=== PATIENT | female | born 1960 | race American Indian/Alaskan Native ===

== ENCOUNTER 2016-09-10 12:49 | Outpatient (CLI) | payer BC ==
--- NOTE | 2016-09-10 14:26 | Mammography Report ---
Screening mammogram: Routine views compared to prior exam in August 2015. The overall breast pattern generally fatty replaced. An ovoid well-circumscribed density is present in the inferior left breast which has slightly enlarged compared to prior study. Small stable similar nodule is noted in the lateral right breast. No other significant findings or changes identified. CAD used. Impression: Slightly enlarging left breast asymmetry. Recommendation: Left breast ultrasound. If this is not a simple cyst, additional spot compression imaging of the left breast is recommended. BI-RADS CATEGORY: 0 = Needs additional imaging evaluation ACR BI-RADS MAMMOGRAPHIC CODES: 0 = Needs additional imaging evaluation; 1 = Negative; 2 = Benign; 3 = Probably benign; 4 = Suspicious; 5 = Malignant; 6 = Known biopsy-proven malignancy COMMENT: 1. Dense breast tissue, i.e., adenosis, fibrocystic changes, etc., may obscure an underlying neoplasm. 2. Approximately 10% of cancers are not detected with mammography. 3. A negative mammography report should not delay biopsy if a clinically suspicious mass is present.
== END 2016-09-10 12:50 | disposition home or self-care (01) ==
LOC: SPVWC 12:49
PROVIDERS: ATTEND Family Medicine
DX: Z12.31 Encounter for screening mammogram for malignant neoplasm of breast (principal)
CPT/HCPCS: 77067; G0202

== ENCOUNTER 2016-09-17 15:11 | Outpatient (CLI) | payer BC ==
--- NOTE | 2016-09-17 15:48 | Ultrasound Report ---
LEFT BREAST ULTRASOUND: 09/17/16 15:11:00 CLINICAL: Abnormal screening mammogram. COMPARISON: 09/10/16 FINDINGS: Ultrasound of the left breast(including all four quadrants and the retroareolar area) was performed and demonstrated normal fatty structures with no mass, cyst or shadowing to correlate with the mammographic density. IMPRESSION: Negative left breast ultrasound and a probably benign 1 cm intraparenchymal lymph node in the inferior left breast. BI-RADS 3 - - Probably Benign RECOMMENDATION: Six month followup left mammogram.
== END 2016-09-17 15:12 | disposition home or self-care (01) ==
LOC: SPVWC 15:11
PROVIDERS: ATTEND Family Medicine
DX: R92.8 Other abnormal and inconclusive findings on diagnostic imaging of breast (principal)

== ENCOUNTER 2017-12-06 13:31 | Outpatient (CLI) | payer BC ==
--- NOTE | 2017-12-06 14:09 | Mammography Report ---
BILATERAL MAMMOGRAM: FINDINGS: The breasts are almost entirely fat (<25% glandular). No mass, distortion, suspicious calcification, or skin change is seen. No significant change compared to exams dating back to August 2015. CAD was utilized. IMPRESSION: Negative mammogram. There is no mammographic evidence of malignancy. RECOMMENDATION: Follow-up per ACS guidelines. BI-RADS CATEGORY: 1 = Negative ACR BI-RADS MAMMOGRAPHIC CODES: 0 = Needs additional imaging evaluation; 1 = Negative; 2 = Benign; 3 = Probably benign; 4 = Suspicious; 5 = Malignant; 6 = Known biopsy-proven malignancy COMMENT: 1. Dense breast tissue, i.e., adenosis, fibrocystic changes, etc., may obscure an underlying neoplasm. 2. Approximately 10% of cancers are not detected with mammography. 3. A negative mammography report should not delay biopsy if a clinically suspicious mass is present. COMMENT: Patient follow-up letters are generated in [employer].
== END 2017-12-06 13:32 | disposition home or self-care (01) ==
LOC: SPVWC 13:31
PROVIDERS: ATTEND Family Medicine
DX: Z12.31 Encounter for screening mammogram for malignant neoplasm of breast (principal)
CPT/HCPCS: 77067

== ENCOUNTER 2019-12-12 09:39 | Outpatient (CLI) | payer BC ==
--- NOTE | 2019-12-13 17:00 | Mammography Report ---
BILATERAL DIGITAL SCREENING MAMMOGRAM WITH CAD HISTORY: SCREENING MAMMO TECHNIQUE: Routine digital mammographic imaging performed. This examination was interpreted with koffi aggarwal benefit of Computer-aided Detection analysis. COMPARISON: 12/07/2018, 12/06/2017, 09/10/2016, 09/09/2015, 04/18/2013. FINDINGS: Breast Density: predominantly fatty breast parenchymal pattern. Digital CC and MLO views demonstrate no mammographic evidence of malignancy. Stable inferior breast lesion. Long-term stability would support a benign etiology, such as an intramammary lymph node. IMPRESSION: No mammographic evidence of malignancy. If the clinical examination remains stable, recommend bilate ral mammogram in approximately one year. BIRADS 2: Benign Finding(s). FURTHER INFORMATION: According to the [employer], yearly mammograms are recommend ed starting at age 40 and continuing as long as a woman is in good health. Clinical Breast Exams shou ld be part of a periodic health exam-about every 3 years for women in their 20s and 30s and every yea r for women 40 and over. Breast self exam is an option for women starting in their 20s. Any breast ch javon noted on a breast self exam should be reported promptly to the patient's healthcare provider. Br east MRI is recommended for women with an approximately 20-25% or greater lifetime risk of breast can cer, including women with a strong family history of breast or ovarian cancer and women who have been treated for Hodgkin's disease. A negative Mammography report should not discourage follow up or biopsy of a clinically significant f inding and/or abnormality. Dense breast tissue may obscure small neoplasms. The patient will be entered into a reminder system with a target due date for the next screening mamm ogram. Signer Name: Meir Del Castillo MD Signed: 12/13/2019 4:52 PM Workstation Name: [id number]
== END 2019-12-12 09:40 | disposition home or self-care (01) ==
LOC: SPVWC 09:39
PROVIDERS: ATTEND Family Medicine
DX: Z12.31 Encounter for screening mammogram for malignant neoplasm of breast (principal)
CPT/HCPCS: 77067

== ENCOUNTER 2020-03-13 09:27 | Emergency (ER) | payer BC ==
[2020-03-13 10:05] VITALS: BP 190/106
[2020-03-13 10:46] LABS: Basophils % (Auto) 0.5 % (0.0-1.8); Eosinophils # (Auto) 0.2 K/mm3 (0.0-0.4); Eosinophils % (Auto) 4.2 % (0.0-4.3); Hematocrit 43.9 % (30.3-42.9); Hemoglobin 14.2 gm/dl (10.1-14.3); Lymphocytes # (Auto) 2.8 K/mm3 (1.2-5.4); Lymphocytes % (Auto) 48.1 % (13.4-35.0); Mean Corpuscular HGB Conc 33 % (30-34); Mean Corpuscular Volume 87 fl (79-97); Monocytes # (Auto) 0.5 K/mm3 (0.0-0.8); Monocytes % (Auto) 7.8 % (0.0-7.3); Platelet Count 189 K/mm3 (140-440); Red Blood Count 5.05 M/mm3 (3.65-5.03); Red Cell Distribution Width 14.2 % (13.2-15.2)
[2020-03-13 11:08] LABS: Alanine Aminotransferase 27 units/L (7-56); BUN/Creatinine Ratio 15; Blood Urea Nitrogen 12 mg/dL (7-17); Calcium 9.8 mg/dL (8.4-10.2); Hemolysis Index 10
[2020-03-13 11:20] LABS: Bilirubin,Urine NEG (Negative); Blood,Urine NEG (Negative); Color,Urine Yellow (Yellow); Mucus,Urine 2+ /HPF; Protein,Urine <15 mg/dL mg/dL (Negative); Urobilinogen,Urine < 2.0 mg/dL (<2.0)
[2020-03-13] MEDS ORDERED: MORPHINE 4 MG/1 ML INJ IV ONE (16:03)
[2020-03-13] MEDS ORDERED: ONDANSETRON 4 MG/2 ML INJ IV ONE (16:03)
--- NOTE | 2020-03-13 16:40 | Cat Scan Report ---
CT ABDOMEN AND PELVIS WITH CONTRAST INDICATION / CLINICAL INFORMATION: acute left sided abdominal pain. TECHNIQUE: Axial CT images were obtained through the abdomen and pelvis after 100 cc Omnipaque [address] scans at this location are performed using CT dose reduction for ALARA by means of automated exposure control. COMPARISON: None available. FINDINGS: LOWER CHEST: No significant abnormality. LIVER: Generalized steatosis without other significant abnormalities. GALLBLADDER: No significant abnormality. BILE DUCTS: No significant abnormality. PANCREAS: No significant abnormality. SPLEEN: No significant abnormality. ADRENALS: No significant abnormality. RIGHT KIDNEY / URETER: No significant abnormality. LEFT KIDNEY / URETER: A simple left upper renal pole cyst measures 8.7 x 8.0 cm. No other significant abnormality. STOMACH / SMALL BOWEL: No significant abnormality. COLON: No significant abnormality. APPENDIX: Not seen. PERITONEUM: No free fluid. No free air. No fluid collection. LYMPH NODES: No significant adenopathy. AORTA / ARTERIES: No acute abnormality. Mild aortoiliac atherosclerosis. IVC / VEINS: No significant abnormality. URINARY BLADDER: No significant abnormality. REPRODUCTIVE ORGANS: No significant abnormality. ADDITIONAL FINDINGS: None. SKELETAL SYSTEM: No acute abnormality. Mild degenerative changes are seen along the spine. IMPRESSION: 1. No acute abnormality. 2. Additional findings as above. Signer Name: Levi Vigil MD Signed: 03/13/2020 4:35 PM Workstation Name: [id number]
--- NOTE | 2020-03-13 17:06 | Emergency Department Report ---
ED Abdominal Pain HPI - General Chief Complaint: Abdominal Pain Stated Complaint: LEFT ABD PAIN Time Seen by Provider: 03/13/20 13:58 Source: patient Mode of arrival: Wheelchair Limitations: No Limitations - History of Present Illness Initial Comments: The patient was evaluated in the emergency department for symptoms described in the history of present illness. He/she was evaluated in the context of the global COVID-19 pandemic, which necessitated consideration that the patient might be at risk for infection with the virus that causes COVID-19. In stitutional protocols and algorithms that pertain to the evaluation of patients at risk for COVID-19 are in a state of rapid change based on information released by regulatory bodies including the CDC and federal and state organizations. These policies and algorithms were followed during the patient's care in the emergency department. Please note that these policies, procedures and recommendations changed on a rapid basis. 59-year-old -[place] female presents to the emergency room for left upper quadrant abdominal pain times this morning. Patient states she has never had this type of pain. She denies any nausea no vomiting no diarrhea. She reports she has had a normal bowel movement this morning. She denies any fever or chills. She says the pain is worse when she takes a deep breath. She has no concerns of urinary symptoms. No vaginal discharge no vaginal bleeding. She does have a history of hypertension and high cholesterol she is currently on medication for this and does have a primary care provider Dr. Konstantin Andrade. Complaint: abdominal pain -: This morning Location: [facility] Radiation: none Migration to: no migration Severity scale (0 -10): 7 Quality: sharp Consistency: intermittent Improves With: medication Worsens With: other (deep breath) Associated Symptoms: denies other symptoms - Related Data Allergies Allergy/AdvReac Type Severity Reaction Status Date / Time No Known Allergies Allergy Unverified 03/13/20 10:03 ED Review of Systems ROS: Stated complaint: LEFT ABD PAIN Other details as noted in HPI Comment: All other systems reviewed and negative ED Past Medical Hx - Past Medical History Hx Hypertension: Yes Additional medical history: HIGH CHLORESTROL - Surgical History Past Surgical History?: No ED Physical Exam - General Limitations: No Limitations General appearance: alert, in no apparent distress - Head Head exam: Present: atraumatic, normocephalic - Eye Eye exam: Present: normal appearance - ENT ENT exam: Present: mucous membranes moist - Respiratory Respiratory exam: Absent: accessory muscle use - Cardiovascular Cardiovascular Exam: Present: regular rate, normal rhythm. Absent: systolic murmur, diastolic murmur, rubs, gallop - GI/Abdominal GI/Abdominal exam: Present: soft, tenderness (Left upper quadrant deep palpation), normal bowel sounds. Absent: distended - Extremities Exam Extremities exam: Present: normal inspection - Back Exam Back exam: Present: normal inspection - Neurological Exam Neurological exam: Present: alert, oriented X3 - Psychiatric Psychiatric exam: Present: normal affect, normal mood - Skin Skin exam: Present: warm, dry, intact, normal color. Absent: rash ED Course Vital Signs 03/13/20 10:02 Temperature 98.0 F Pulse Rate 81 Respiratory 20 Rate Blood Pressure 190/106 O2 Sat by Pulse 96 Oximetry ED Medical Decision Making - Lab Data Result diagrams: 03/13/20 10:26 03/13/20 10:26 - Medical Decision Making 59-year-old -[place] female presents to the emergency room for left upper quadrant abdominal pain times this morning. Patient states she has never had this type of pain. She denies any nausea no vomiting no diarrhea. She reports she has had a normal bowel movement this morning. She denies any fever or chills. She says the pain is worse when she takes a deep breath. She has no concerns of urinary symptoms. No vaginal discharge no vaginal bleeding. She does have a history of hypertension and high cholesterol she is currently on medication for this and does have a primary care provider Dr. Konstantin Andrade. CT shows a left kidney cyst. No acute abnormalities. Labs are stable. Patient was given pain medication during her ER visit which she reports is taken the edge off. Discussed with patient she can take [id number] Tylenol or ibuprofen follow-up with a kidney specialist as well as her primary care provider. Patient verbalized understanding Critical care attestation.: If time is entered above; I have spent that time in minutes in the direct care of this critically ill patient, excluding procedure time. ED Disposition Clinical Impression: Left upper quadrant abdominal pain, Kidney cysts Disposition: TO HOME OR SELFCARE Is pt being admited?: No Does the pt Need Aspirin: No Condition: Stable Instructions: Abdominal Pain (ED), Abdominal Pain, Adult, [id number] Additional Instructions: Labs are normal CT shows a kidney cyst on the left kidney. I recommend Tylenol ibuprofen to follow-up with the gameplay engineer as well as her primary care provider. If your symptoms get worse he can return back to the emergency room for reevaluation. Referrals: TORI ANDRADE MD [Primary Care Provider] - 3-5 Days ENRIQUE DALTON DO [Staff Physician] - 3-5 Days
== END 2020-03-13 17:46 | disposition home or self-care (01) ==
LOC: ED 09:27
DX: N28.1 Cyst of kidney, acquired (principal); I10 Essential (primary) hypertension
CPT/HCPCS: 36415; 74177; 80053; 81001; 83690; 84484; 85025; 96374; 96375; 99284; J2270; J2405; Q9967